=== PATIENT | female | born 1940 | race Caucasian/White ===

== ENCOUNTER → 2016-08-27 | Outpatient (CLI) | payer OTHER ==
[~2016-08-27] MED LIST: AMIO200T42; ASCA500 PO; ATOR10TA88 PO; CHOL100010 PO; CLTP PO; HYDRCRE28 TOP; METO50TA16 PO; MULT-506 PO; MULTCAP7 PO; OMEG10007 PO; SSDCR400; TRMCR130WC TOP; WARF5TAB7 PO; [UNRECOGNIZED DRUG - CODE] PO
--- NOTE | 2016-08-30 14:28 | MAMMOGRAPHY REPORT ---
BILATERAL DIGITAL SCREENING MAMMOGRAM WITH CAD: 08/27/2016 TECHNIQUE: Current study was also evaluated with a Computer Aided Detection (CAD) system. Bilatera l CC and MLO views were obtained. COMPARISON: Comparison is made to exams dated: 08/26/2015 mammogram, 08/22/2014 mammogram, 06/30/2012 mammogram, 06/22/2010 mammogram, 07/02/2013 mammogram, and 06/24/2011 mammogram - [facility]. BREAST COMPOSITION: There are scattered areas of fibroglandular density in both breasts. FINDINGS: There is a stable small round 4 mm mass within the right 12:00 breast. However, there ar e possible increasing calcifications seen within the mass, for which spot magnification views and po ssible breast ultrasound are recommended for further evaluation. Additionally, there are also possi ble increasing calcifications in the right inferior and slightly medial breast middle depth, for whi ch spot magnification views are also recommended. The remainder of both breasts are stable compared to prior exams, without suspicious masses, calcifi cations, or areas of architectural distortion noted. IMPRESSION: ACR BI-RADS CATEGORY 0: INCOMPLETE EVALUATION: NEED ADDITIONAL IMAGING EVALUATION Right breast calcifications, for which additional imaging evaluation is recommended. The patient wi ll be called to schedule an appointment. Approximately 10% of breast cancers are not detected with mammography. A negative mammographic repor t should not delay biopsy if a clinically suggestive mass is present. Courtney Rolle M.D. /:08/27/2016 16:42:39 Lapper: Karen STEEN)(Ric), [facility] letter sent: Addl Imaging 0 BI-RADS Code: ACR BI-RADS Category 0: Incomplete Evaluation: Need Additional Imaging Evaluation
== END | disposition home or self-care (01) ==
LOC: C.MAMM 15:51
PROVIDERS: ATTEND Physician Assistant
DX: Z12.31 Encounter for screening mammogram for malignant neoplasm of breast (principal); R92.1 Mammographic calcification found on diagnostic imaging of breast

== ENCOUNTER → 2016-09-09 | Outpatient (CLI) | payer OTHER ==
[~2016-09-09] MED LIST changes: +ATOR10TA82 PO; -ATOR10TA88 PO
--- NOTE | 2016-09-09 15:07 | MAMMOGRAPHY REPORT ---
UNILATERAL RIGHT DIGITAL DIAGNOSTIC MAMMOGRAM: 09/09/2016 CLINICAL HISTORY: Callback from screening mammogram for right breast calcifications. TECHNIQUE: Spot magnification right cc and ML views were obtained. COMPARISON: Comparison is made to exams dated: 08/27/2016 mammogram, 08/26/2015 mammogram, 08/22/2014 mammogram, 07/02/2013 mammogram, 06/30/2012 mammogram, and 06/24/2011 mammogram - [facility]. BREAST COMPOSITION: There are scattered areas of fibroglandular density in the right breast. FINDINGS: There is a small cluster of calcifications seen within a 4 mm round mass in the right 12:00 breast. The mass does not appear significantly changed compared to prior exams including the 2008 exam. Ho wever, there are punctate calcifications seen within the mass which are not clearly stable compared to prior exams. Additionally, there is a small 2 mm cluster of calcifications seen within the right lower inner quadrant which appears similar to the 12:00 calcifications, which are likely stable com pared to the 2015 exam although were not clearly seen on exams prior to 2016. Although the increase d conspicuity of both clusters of calcifications could be due to technical differences (currently us ing [employer] equipment, previously using [employer] equipment on some of the prior exams), the calcifications are indeterminate. Stereotactic biopsy of the right 12:00 calcifications is recommended, however, the patient refuses biopsy. Therefore, recommend short interval follow-up in 6 months. IMPRESSION: ACR-BI-RADS CATEGORY 3: PROBABLY BENIGN 1. Possible increasing calcifications within a stable 4 mm mass within the right breast at 12:00. G iven that the calcifications are not clearly stable, biopsy is recommended. However, the patient do es not want biopsy and would prefer follow-up. Therefore, recommend follow-up diagnostic mammograms of the right breast in 6 months to confirm stability on spot magnification views. 2. Small 2 mm cluster of calcifications in the right lower inner quadrant which are likely stable t o the 2016 exam and are probably benign. Recommend follow-up diagnostic mammograms in 6 months to c onfirm stability. The patient has been verbally notified of the results. Approximately 10% of breast cancers are not detected with mammography. A negative mammographic repor t should not delay biopsy if a clinically suggestive mass is present. Courtney Rolle M.D. ah/:09/09/2016 11:57:33 Sander Machine: Nikki Camilo [facility] letter sent: Follow Up Recommended 3 BI-RADS Code: ACR-BI-RADS Category 3: Probably Benign
== END | disposition home or self-care (01) ==
LOC: C.MAMM 10:37
PROVIDERS: ATTEND Physician Assistant
DX: R92.1 Mammographic calcification found on diagnostic imaging of breast (principal)

== ENCOUNTER → 2017-04-18 | Outpatient (CLI) | payer OTHER ==
--- NOTE | 2017-04-18 15:03 | MAMMOGRAPHY REPORT ---
UNILATERAL RIGHT DIGITAL DIAGNOSTIC MAMMOGRAM TOMOSYNTHESIS WITH CAD: 04/18/2017 CLINICAL HISTORY: 76-year-old woman presents for follow-up in the right breast. On prior screening m ammogram and diagnostic mammogram dated 08/27/2016 and 09/09/2016, the patient was noted to have 2 no dular asymmetries with associated clustered punctate microcalcifications in the right breast. These nodular asymmetries with calcifications were new comparing to the prior 2013 and 2014 mammogram and t herefore indeterminate. Stereotactic guided biopsy was recommended but the patient declined biopsy a nd preferred to follow these findings. The patient also reported further that she is living in chronic pain elsewhere in her body (back and legs) and also would not have any treatment if malignancy were identified in the breast. TECHNIQUE: Right CC and MLO 2-D and tomosynthesis images, spot magnification right CC and ML views we re obtained. Current study was also evaluated with a Computer Aided Detection (CAD) system. COMPARISON: Comparison is made to exams dated: 09/09/2016 mammogram, 08/27/2016 mammogram, 08/26/2015 ma mmogram, 08/22/2014 mammogram, 07/02/2013 mammogram, and 06/30/2012 mammogram - [facility]. BREAST COMPOSITION: There are scattered areas of fibroglandular density in the right breast. FINDINGS: There is 4.3 x 3.8 mm nodular asymmetry with associated clustered punctate microcalcificat ion in the 12:00 middle one third of the right breast. When comparing to the prior spot magnificatio n views, this is unchanged in size and visual appearance and previously measured 4.7 x 3.8 mm. The s light differences in measurements are likely due to technical differences and positioning. A second smaller similar appearing nodular asymmetry with associated clustered punctate microcalcification is identified in the 6:00 middle one third of the breast, measuring 3 mm. No new suspicious masses, asy mmetries, areas of distortion or other suspicious microcalcifications are identified in the right cody ast. Stereotactic guided biopsy is again recommended of the dominant nodular asymmetry with associat ed calcification in the 12:00 breast, given that long-term stability is not demonstrated mammographic ally. IMPRESSION: ACR BI-RADS CATEGORY 4: SUSPICIOUS 1. Right breast stereotactic guided biopsy is recommended for a 4.3 mm nodular asymmetry with associ ated clustered punctate microcalcification in the 12:00 middle one third of the breast. The second s maller similar appearing nodular asymmetry with history punctate microcalcification in the 6:00 breas t could continue to be followed with imaging in 6 months, pending benign pathology results. These results and recommendations were discussed with the patient at the time of the exam. She again declines biopsy given that she is in chronic pain elsewhere in her body. I discussed at length that even though this nodular asymmetry with calcifications has been relatively stable over 6 months, it is new comparing to the prior 2013 mammograms and therefore could still possibly represent indolent D CIS or atypia. I again urged biopsy, which the patient does not wish, and she would prefer to follow with repeat imaging. I also discussed that if she does not wish to have any treatment if malignancy is found, she should consider discontinuing mammograms. Approximately 10% of breast cancers are not detected with mammography. A negative mammographic report should not delay biopsy if a clinically suggestive mass is present. Catalina Aguayo M.D. ay/:04/18/2017 14:19:12 Laundry Operator: Freida JENSEN(Celsa)(M), [facility] letter sent: Abnormal 4/5 BI-RADS Code: ACR BI-RADS Category 4: Suspicious
== END | disposition home or self-care (01) ==
LOC: C.MAMM 13:42
PROVIDERS: ATTEND Physician Assistant
DX: N64.89 Other specified disorders of breast (principal); R92.0 Mammographic microcalcification found on diagnostic imaging of breast

== ENCOUNTER 2020-10-21 10:28 | Inpatient (IN) ==
--- NOTE | 2020-10-21 14:09 | History & Physical Report ---
Date of Service October 21, 2020 Assessment & Plan (1) Cellulitis of both lower extremities: Pt failed outpatient treatment with IM Rocephin and oral Bactrim. Culture results reviewed - discussed with pharmacy for antibiotic/treatment recommendations - Will start IV Zosyn, continue oral Bactrim - Blood cultures, repeat wound culture - Consult infectious disease for additional antibiotic recommendations - Wound care consult (2) Skin ulcer of multiple sites: See plan for #1 (3) HTN (hypertension): - Continue home med regimen - BP stable at present. (4) Dyslipidemia: - Continue statin therapy (5) Atrial fibrillation: Stable without persistent symptoms - on chronic anticoagulation. Will hold Eliquis in case additional debridement needed. Start subQ Heparin for DVT prophylaxis (6) Hypothyroidism: - Continue outpatient levothyroxine. Pt seen and reviewed with attending physician, Dr. Hurst. Plan of care discussed and as outlined above. Pt was planning to go to [facility] later this week as currently unable to manage independently at home. Will consult PT/OT due to LE weakness and case management to assist with discharge planning. Code status: full code, both of her children would be her decision makers in the event she was unable to make decisions for herself DVT prophylaxis: subQ heparin Elvira Springer PA-C Admission and Anticipated Discharge Date Admission Date: October 21, 2020 History of Present Illness Chief Complaint: Leg pain and ulcers Primary Care Provider: Yi Orosco PA-C This is a 80 y/o female with a PMH of atrial fibrillation on chronic anticoagulation with Eliquis, HTN, lymphedema, dyslipidemia, and mitral valve regurgitation presents as a direct admission from wound care today with a necrotic calf wound and associated cellulitis that failed outpatient management with IM ceftriaxone and oral Bactrim. Pt reports ongoing issues with lower extremity edema for which she has been seen outpatient, diuretics were adjusted, and patient was referred to the lymphedema clinic. Pt reports ulcers started about 3 weeks ago but have gradually worsened. Initially the drainage was clear but has become yellow and more profuse over the past several days. May be bloody at times. Last week, pts daughter arrived from out of town and noted a large wound on pts right calf with associated redness, which she was very concerned about. Pt was seen in PCP office and started on antibiotics and labs and a wound culture were collected. She received Ceftriaxone 1 g IM on 10/16, 10/17, and 10/18. She was started on oral Bactrim DS 1 tab BID on 10/17. Topical silvadene was also started on 10/16. Wound culture from 10/17/20 grew many citrobacter (susceptible to cefepime, Cipro, gentamicin, pip/tazo, and Bactrim), many stenotrophomonas maltophilia (no susceptibility testing but recommends Bactrim), and few staph aureus (susceptible to clindamycin, oxacillin, tetracycline, Bactrim and Vanco but resistant to PCN-G and intermediate to erythromycin). Today she presented for urgent evaluation at wound care clinic and was noted to have multiple wounds, including the one on her right calf that is now necrotic, with an associated cellulitis. She was referred by the wound care physician to be directly admitted for surgical debridement and IV antibiotic therapy. Pt's main complaint is LE weakness, pain/soreness at the ulcer sites, and limited ability to ambulate due to this complaint. She denies fevers, chills, malaise, fatigue, CP, palpitation, SOB, N/V/D. She does note urinary incontinence that she relates to the higher dose of Demadex. Allergies Allergy/AdvReac Type Severity Reaction Status Date / Time No Known Allergies Allergy Verified 10/21/20 09:05 Home Medications Medication Instructions Recorded Confirmed Type apixaban 5 mg tablet 5 mg PO BID 10/21/20 10/21/20 History atorvastatin 10 mg tablet 10 mg PO PM 10/21/20 10/21/20 History calcium carbonate 600 mg(1,500 1 tab PO BID 10/21/20 10/21/20 History mg)-vitamin D3 800 unit chewable tablet cholecalciferol (vitamin D3) 25 25 mcg PO DAILY 10/21/20 10/21/20 History mcg (1,000 unit) capsule diclofenac sodium 1 % topical gel 2 g TOPICAL QID 10/21/20 10/21/20 History levothyroxine 25 mcg capsule 12.5 mcg PO DAILY cap 10/21/20 10/21/20 History losartan 25 mg tablet 25 mg PO QPM tab 10/21/20 10/21/20 History losartan 25 mg tablet 50 mg PO QAM tab 10/21/20 10/21/20 History metoprolol tartrate 100 mg PO QAM 10/21/20 10/21/20 History metoprolol tartrate 50 mg tablet 50 mg PO PM tab 10/21/20 10/21/20 History potassium chloride 20 mEq 20 meq PO DAILY 10/21/20 10/21/20 History tablet,extended release(part/cryst) silver sulfadiazine 1 % topical 1 applic TOPICAL DAILY 10/21/20 10/21/20 History cream sulfamethoxazole 800 1 tab PO BID 10/21/20 10/21/20 History mg-trimethoprim 160 mg tablet torsemide 20 mg tablet 20 mg PO BID tab 10/21/20 10/21/20 History vitamins A,C,U-[id number]-[id number] 7,160 1 tab PO ONCE tab 10/21/20 10/21/20 History unit-113 mg-100 unit tablet Past Med/Surg History Medical History (Updated 10/21/20 @ 17:00 by Zakiya Springer PA-C) Afib Benign neoplasm of colon Diverticula, colon Dyslipidemia History of cardioversion HTN (hypertension) Hypothyroidism Menopause Osteoarthritis Surgical History History of ankle surgery History of dilation and curettage S/P tonsillectomy and adenoidectomy Family History (Updated 10/21/20 @ 14:39 by Zakiya Springer PA-C) Sister Endometrial cancer Hypertension Mother Stroke Father Hypertension Brain cancer Social History Smoking Status: Former smoker Smoking End Date: "Many years ago"; Hx Alcohol Use: No Hx Substance Use: No Preferred Language: Latvian Communication Ability: Effective Visual Impairment: Limited Hearing Ability: Hard of Hearing Equipment Superintendent Required: No Beliefs That Will Affect Care: None marital status: Current Living Situation: Alone Current Living Situation Comment: FAMILY AND PT WORKING ON GETTING PT PLACEMENT INTO INPT REHAB FACILITY current occupational status: retired How many Children do You have: 2 How many Children do You have Comment: NOBODY IS LOCAL, HOWEVER THEY ARE INVOLVED WITH PT Other Information That Helps Us Care for You: No Feels Safe at Home: Yes Safety Concerns: Feels Safe At This Time Safety Concerns Comment: STATED WORKING ON GETTING PT/OT TO MAKE STAYING AT HOME ALONE MORE SAFE. during the past year weight has: decreased > 10 lbs Assistive Devices: None Review of Systems Review of Systems: All systems reviewed & are unremarkable except as noted in HPI & below Constitutional: no fever, no chills, no sweats, no fatigue and no anorexia Eyes: no diplopia and no worsening vision Respiratory: no cough, no chest congestion, no dyspnea and no wheezing Cardiovascular: + edema; no chest pain, no palpitations and no syncope Gastrointestinal: no abdominal pain, no nausea, no vomiting, no change in bowel habits, no diarrhea/loose stools and no blood in stools Genitourinary: + urinary frequency and + urinary incontinence; no dysuria and no hematuria Musculoskeletal: + back pain +chronic arthritis pain - uses Diclofenac gel with some relief Integumentary: as per Subjective / HPI Neurologic: + localized weakness (bilateral LE); no generalized weakness, no seizure-like activity, no dizziness and no headache(s) Psychiatric: no depression and no anxiety Physical Exam Constitutional: well developed and well nourished; no acute distress Eyes: + anicteric sclerae; no conjunctival abnormality Neck: trachea midline Respiratory: no respiratory distress and no labored breathing Auscultation: lungs clear to auscultation bilaterally; no rales, no rhonchi and no wheezes Cardiovascular: Rate/Rhythm: + irregularly irregular Vessels: radial pulses present; no carotid bruit Extremities: + edema (bilateral LE 1+ pitting to lower thighs - however, legs currently wrapped) Gastrointestinal (Abdomen): Inspection/Auscultation: normal bowel sounds; abdomen not distended Percussion/Palpation: abdomen soft; abdomen nontender Musculoskeletal: Head/Neck/Chest: normocephalic, head atraumatic and neck supple Skin: Bilateral LEs are wrapped with dressings C/D/I - not removed since pt was evaluated by wound care this AM (please see their note) and debridement attempted Neurologic: moves all extremities; no focal motor deficits Motor/Sensory: normal movement Psychiatric: A+Ox3, euthymic affect Results & Data Results & Data ([facility]) Vital Signs (Past 12 Hours) Vital Signs Temp Resp BP Pulse Ox 10/21/20 13:27 36.8 C 17 110/70 98 Code Status & VTE Plan VTE Prophylaxis Plan VTE Prophylaxis will be ordered: Yes Supervising Physician Co-Signing Physician Notes Attending addendum: The patient was seen and examined in medical floor in presence of the daughter She is 80-year-old obese female significant past medical history of A. fib on Eliquis, mitral regurgitation, hypertension, hyperlipidemia and chronic bilateral lymphedema has been under care of wound clinic was admitted directly from the wound clinic with worsening bilateral lower extremity wounds She complains to have more pain and redness involving the legs but denies any fever and/or chills or any sweating On examination Sitting at the edge of the bed without any apparent distress Hemodynamically stable Chest-clear to auscultate bilaterally Heart-S1-S2 with 2/6 ESM over precordium Abdomen-distended, soft bowel sound present ACIDITY TESTER-alert, awake and oriented x3. No focal neuro deficit but generally weak Extremities-has bilateral lymphedema Both the legs are bandaged, erythematous on top of the bandage and feels warm Her admission labs including CBC and PRP noted. She has mildly elevated lactate of 2.7 and mildly elevated C-reactive protein of 5.95. Recent wound culture grew Citrobacter and stenotrophomonas maltophilia sensitive to Bactrim. Assessment and plan: Has bilateral leg cellulitis with history of lymphedema-we will start intravenous Zosyn and oral Bactrim and get ID recommendation Wound care consult and possible debridement if indicated Atrial fibrillation on Eliquis-no acute symptoms. We will get echocardiogram to evaluate cardiac function Hypertension-we will continue current medications Bilateral lymphedema of the legs-we will continue torsemide and monitor PRP Reviewed assessment and plan as outlined above by WINIFRED Santizo Dr (1) Skin ulcer of multiple sites Non-pressure ulcer stage: unspecified non-pressure ulcer stage Qualified Code(s): L98.499 - Non-pressure chronic ulcer of skin of other sites with unspecified severity (2) Atrial fibrillation Atrial fibrillation type: longstanding persistent Qualified Code(s): I48.11 - Longstanding persistent atrial fibrillation (3) Hypothyroidism Hypothyroidism type: acquired Qualified Code(s): E03.9 - Hypothyroidism, unspecified (4) HTN (hypertension) Hypertension type: essential hypertension Qualified Code(s): I10 - Essential (primary) hypertension
[2020-10-21] MEDS ORDERED: PIPERACILL/TAZOBAC CONSULT ACTIVE PRN (14:31)
[2020-10-21] MEDS ORDERED: PIPERACILLIN/TAZOBACTAM 4.5 GM in DEXTROSE 5% 100 ML IV SCH (14:45)
[2020-10-21] MEDS ORDERED: PATIENT'S HEIGHT AND/OR WEIGHT NEEDED SCH (14:45)
[2020-10-21 14:54] LABS: Basophils # (auto) 0.03 K/uL (0-0.2); Basophils % (auto) 0.3 %; Eosinophils # (auto) 0.19 K/uL (0-0.5); Eosinophils % (auto) 2.2 %; Hemoglobin 14.2 g/dL (12.0-16.0); Immature Granulocytes # (auto) 0.03 K/uL (0.00-0.02); Immature Granulocytes % (auto) 0.3 %; Lymphocytes # (auto) 1.01 K/uL (1.2-3.4); Lymphocytes % (auto) 11.6 %; Mean Corpuscular Hemoglobin 29.5 pg (25-34); Mean Corpuscular Volume 89.4 fL (80-100); Monocytes # (auto) 0.48 K/uL (0.11-0.59); Monocytes % (auto) 5.5 %; Neutrophils % (auto) 80.1 %; Platelet Count 294 K/uL (130-400); RDW Coefficient of Variation 15.8 % (11.5-14.5); RDW Standard Deviation 51.4 fL (36.4-46.3); Red Blood Count 4.81 M/uL (4.2-5.4); White Blood Count 8.74 K/uL (4.8-10.8)
[2020-10-21 15:13] LABS: BUN Creatinine Ratio 23.4 (10-20); Blood Urea Nitrogen 27 mg/dl (7-18); C Reactive Protein 5.95 mg/dl (0-0.29); Calcium 9.4 mg/dl (8.5-10.1); Carbon Dioxide 27 mmol/L (21-32); Chloride 102 mmol/L (98-107); Est GFR (African American) 51.3 ml/min; Est GFR (Non-African American) 44.3 ml/min; Glucose 110 mg/dl (70-99); Potassium 4.3 mmol/L (3.5-5.1); Sodium 136 mmol/L (136-145)
[2020-10-21] MEDS ORDERED: PIPERACILLIN/TAZOBACTAM 4.5 GM in DEXTROSE 5% 100 ML IV ONE (17:00)
[2020-10-21] MEDS: ATORVASTATIN 10 MG TAB PO SCH (21:31)
[2020-10-21] MEDS: SULFAMETHOXAZOLE/TRIMETHOPRIM DS 800/160MG TAB PO SCH (21:31)
[2020-10-21] MEDS: LOSARTAN POTASSIUM 25 MG TAB PO SCH (21:31)
[2020-10-21] MEDS: METOPROLOL TARTRATE 50 MG TAB PO SCH (21:31)
[2020-10-21] MEDS: HEPARIN SOD 5,000 UNIT/0.5 ML VIAL SQ SCH (21:31)
[2020-10-21] MEDS: PIPERACILLIN/TAZOBACTAM 3.375 GM in DEXTROSE 5% 100 ML IV SCH (23:06)
[2020-10-22] MEDS: PIPERACILLIN/TAZOBACTAM 3.375 GM in DEXTROSE 5% 100 ML IV SCH ×3 (06:14→21:53)
[2020-10-22] MEDS: LEVOTHYROXINE SODIUM 25 MCG TABLET PO SCH (06:15)
[2020-10-22] MEDS: HEPARIN SOD 5,000 UNIT/0.5 ML VIAL SQ SCH ×3 (06:15→21:48)
[2020-10-22 07:56] LABS: Basophils # (auto) 0.04 K/uL (0-0.2); Basophils % (auto) 0.5 %; Eosinophils # (auto) 0.27 K/uL (0-0.5); Eosinophils % (auto) 3.2 %; Hematocrit (blood only) 40.5 % (37-47); Hemoglobin 13.4 g/dL (12.0-16.0); Immature Granulocytes # (auto) 0.02 K/uL (0.00-0.02); Immature Granulocytes % (auto) 0.2 %; Lymphocytes # (auto) 0.66 K/uL (1.2-3.4); Lymphocytes % (auto) 7.8 %; Mean Corpuscular Hemoglobin 29.8 pg (25-34); Mean Corpuscular Hgb Conc 33.1 g/dL (32-36); Mean Corpuscular Volume 90.2 fL (80-100); Mean Platelet Volume 9.5 fL (7.4-10.4); Monocytes # (auto) 1.36 K/uL (0.11-0.59); Neutrophils # (auto) 6.14 K/uL (1.4-6.5); Neutrophils % (auto) 72.3 %; Platelet Count 291 K/uL (130-400); RDW Standard Deviation 52.4 fL (36.4-46.3); Red Blood Count 4.49 M/uL (4.2-5.4); White Blood Count 8.49 K/uL (4.8-10.8)
[2020-10-22 08:23] LABS: BUN Creatinine Ratio 19.5 (10-20); Calcium 9.6 mg/dl (8.5-10.1); Creatinine Clr Calc Pharmacy 37.9 ml/min; Est GFR (African American) 44.8 ml/min; Est GFR (Non-African American) 38.6 ml/min; Potassium 4.5 mmol/L (3.5-5.1)
[2020-10-22] MEDS: CHOLECALCIFEROL 1,000 UNITS 25 MCG TAB PO SCH (08:46)
[2020-10-22] MEDS: SULFAMETHOXAZOLE/TRIMETHOPRIM DS 800/160MG TAB PO SCH ×2 (08:46→21:48)
[2020-10-22] MEDS: POTASSIUM CHLORIDE CRTAB 20 MEQ TABCR PO SCH (08:46)
[2020-10-22] MEDS: LOSARTAN POTASSIUM 50 MG TAB PO SCH (08:47)
[2020-10-22] MEDS: METOPROLOL TARTRATE 100 MG TAB PO SCH (08:47)
--- NOTE | 2020-10-22 14:56 | Surgery Consultation ---
Date of Consultation October 22, 2020 Assessment & Plan (1) Venous stasis ulcers of both lower extremities: This is a 80y F with a PMH of afib on eliquis, hypothyroidism, back pain, HTN, and venous stasis ulcers who presents to the [facility] on 10/21/20 as a referral from the wound care clinic for necrotic right calf wound. Wound care requested our consultation for consideration of surgical debridement of necrotic R calf wound that has not shown improvement with recent course of abx and local care. Patient is currently on IV zosyn and PO bactrim based recent on wound cultures. Today WBC 8 and patient is afebrile. Wound was measured today at [id number], central eschar/necrotic tissue noted, with moderate amount of drainage. It appears her last dose of Eliquis was yesterday, but pt cannot recall exact timing. Would hold eliquis for now. Will discuss with Dr. Ireland timing of surgical debridement. Supervising Physician Co-Signing Physician Notes Patient seen and examined, agree with above. 80-year-old female with multiple medical problems on Eliquis with several lower extremity wounds secondary to venous insufficiency. She currently has a large superficial wound of her right posterior lower leg. Is approximately 9 x 11 cm and has a black eschar over it. There does not appear to be any underlying fluid collection. It does appear to be quite superficial. I think it would benefit from debridement. We offered her bedside debridement versus in the OR. Due to pain at prior debridement, she elects for debridement in the operating room. Plan for right lower extremity wound debridement tomorrow Hold Eliquis The risk the procedure were discussed to include but not limited to bleeding, infection, damage to surrounding structures, need for future more extensive surgery, infection, and failure for wound to heal, and the risk of anesthesia The diagnosis, details of procedure recovery, and plan of care discussed the patient, all questions were answered, the patient expressed understanding agrees the plan of care as stated History of Present Illness Attending Physician: Maikel Aguayo MD History of Present Illness This is a 80y F with a PMH of afib on eliquis, hypothyroidism, back pain, HTN, and venous stasis ulcers who presents to the [facility] on 10/21/20 as a referral from the wound care clinic for necrotic right calf wound. Patient reports she noticed leaking of her R calf over the past few weeks, but that she actually noticed a wound there that opened up a week ago last Tuesday. She went to her PCP for evaluation around 10/16 where she was prescribed a course of IM rocephin and po bactrim. Patient was seen in the wound care clinic yesterday and was evaluated for her lower extremity ulcers. Attempts were made at debriding her R calf wound yesterday, however she was only able to tolerate minimal debridement. It was recommended she come to the hospital for IV abx & consideration of surgical debridement given ongoing cellulitis & necrotic appearing wound. Patient denies any fevers/chills. She notes some tenderness of the area with certain movements. She states she it's been difficult to try to off load the area at home given the location of the wound. Allergies Allergy/AdvReac Type Severity Reaction Status Date / Time No Known Allergies Allergy Verified 10/21/20 09:05 Home Medications Medication Instructions Recorded Confirmed Type apixaban 5 mg tablet 5 mg PO BID 10/21/20 10/21/20 History atorvastatin 10 mg tablet 10 mg PO PM 10/21/20 10/21/20 History calcium carbonate 600 mg(1,500 1 tab PO BID 10/21/20 10/21/20 History mg)-vitamin D3 800 unit chewable tablet cholecalciferol (vitamin D3) 25 25 mcg PO DAILY 10/21/20 10/21/20 History mcg (1,000 unit) capsule diclofenac sodium 1 % topical gel 2 g TOPICAL QID 10/21/20 10/21/20 History levothyroxine 25 mcg capsule 12.5 mcg PO DAILY cap 10/21/20 10/21/20 History losartan 25 mg tablet 25 mg PO QPM tab 10/21/20 10/21/20 History losartan 25 mg tablet 50 mg PO QAM tab 10/21/20 10/21/20 History metoprolol tartrate 100 mg PO QAM 10/21/20 10/21/20 History metoprolol tartrate 50 mg tablet 50 mg PO PM tab 10/21/20 10/21/20 History potassium chloride 20 mEq 20 meq PO DAILY 10/21/20 10/21/20 History tablet,extended release(part/cryst) silver sulfadiazine 1 % topical 1 applic TOPICAL DAILY 10/21/20 10/21/20 History cream sulfamethoxazole 800 1 tab PO BID 10/21/20 10/21/20 History mg-trimethoprim 160 mg tablet torsemide 20 mg tablet 20 mg PO BID tab 10/21/20 10/21/20 History vitamins A,C,H-vndk-chiiqw 7,160 1 tab PO ONCE tab 10/21/20 10/21/20 History unit-113 mg-100 unit tablet Patient History Medical History Afib Benign neoplasm of colon Diverticula, colon Dyslipidemia History of cardioversion HTN (hypertension) Hypothyroidism Menopause Osteoarthritis Surgical History History of ankle surgery History of dilation and curettage S/P tonsillectomy and adenoidectomy Family History Sister Endometrial cancer Hypertension Mother Stroke Father Hypertension Brain cancer Social History Smoking Status: Former smoker Smoking End Date: "Many years ago"; Hx Alcohol Use: No Hx Substance Use: No Preferred Language: Uzbek Communication Ability: Effective Visual Impairment: Limited Hearing Ability: Hard of Hearing Residential Mental Health Worker Required: No Beliefs That Will Affect Care: None marital status: Current Living Situation: Alone Current Living Situation Comment: FAMILY AND PT WORKING ON GETTING PT PLACEMENT INTO INPT REHAB FACILITY current occupational status: retired How many Children do You have: 2 How many Children do You have Comment: NOBODY IS LOCAL, HOWEVER THEY ARE INVOLVED WITH PT Other Information That Helps Us Care for You: No Feels Safe at Home: Yes Safety Concerns: Feels Safe At This Time Safety Concerns Comment: STATED WORKING ON GETTING PT/OT TO MAKE STAYING AT HOME ALONE MORE SAFE. during the past year weight has: decreased > 10 lbs Assistive Devices: Walker Review of Systems Constitutional: no fever and no chills Respiratory: no dyspnea Cardiovascular: no chest pain Gastrointestinal: no nausea and no vomiting Integumentary: + wounds on the L rose, R heel and R calf. Physical Exam Physical Exam: awake/alert Constitutional: no acute distress Respiratory: normal respiratory effort Skin: + superficial wounds 2x noted on left rose. + wound on R heel + right calf wound per wound care measuring 11x11 cm, moderate amount of serosang drainage, central area of necrotic tissue noted. + TTP Results & Data ([facility]) Vital Signs (Past 12 Hours) Vital Signs Temp Pulse Resp BP Pulse Ox 10/22/20 07:49 37.5 C 109 H 14 130/68 90 PG Care Time/CCT Total # of Minutes Spent Total Time Spent with Patient: Total time spent is greater than 50% in coordination of care (as documented) at patient's floor/unit and/or counseling patient: Coding Level of Care Code 25272 Initial Inpt Care Lvl 1 Diagnoses Venous stasis ulcers of both lower extremities I83.019; I83.029; L97.919; L97.929
[2020-10-22] MEDS: COLLAGENASE OINT 30 GM TUBE EXT SCH (15:00)
--- NOTE | 2020-10-22 19:13 | Hospitalist Progress Note ---
Date of Service October 22, 2020 Assessment & Plan (1) Cellulitis of both lower extremities: (2) Skin ulcer of multiple sites: Pt was sent from wound care clinic to the ER for wound necrotic Pt failed outpatient treatment with IM Rocephin and oral Bactrim. Continue IV Zosyn and oral Bactrim for now Wound cx grew gram negative bacilli [facility] ID consulted - Pending Wound care on board Continue daily wound care Will consult surgery for possible wound debridement (3) HTN (hypertension): Continue home med regimen BP stable at present. (4) Dyslipidemia: Continue statin therapy (5) Atrial fibrillation: Stable without persistent symptoms - on chronic anticoagulation. Will hold Eliquis in case additional debridement needed. (6) Hypothyroidism: Continue outpatient levothyroxine. Code status full code DVT prophylaxis on subQ heparin, but will hold in am for possible rehab Admission and Anticipated Discharge Date Admission Date: October 21, 2020 Subjective Pt was seen and examined for follow of wound in the right calf area Lying in bed with no distress Pt said that he has tenderness in his right calf and heal area with pressure Denies any chest pain, palpitation, dizziness and SOB Review of Systems Review of Systems: All systems reviewed & are unremarkable except as noted in Subjective Physical Exam Physical Exam: General- No acute distress Head- atraumatic Eyes- PERRL, EOMI, ENT- oropharynx clear Neck- supple, no JVD Lungs- clear to auscultation Heart- irregular rhythm; no murmur Abdomen- normal bowel sounds, soft, nontender Extremities- +edema, dressing placed in legs, see pictures from wound consult Neuro- alert, oriented x 3; PERRL, EOMI; no facial palsy; no dysarthria Skin- warm & dry Results & Data Results & Data ([facility]) Vital Signs (Past 12 Hours) Vital Signs Temp Pulse Pulse Resp BP Pulse Ox 10/22/20 15:50 36.7 C 98 H 18 109/66 99 10/22/20 07:49 37.5 C 109 H 14 130/68 90 (1) Skin ulcer of multiple sites Non-pressure ulcer stage: unspecified non-pressure ulcer stage Qualified Code(s): L98.499 - Non-pressure chronic ulcer of skin of other sites with unspecified severity (2) Atrial fibrillation Atrial fibrillation type: longstanding persistent Qualified Code(s): I48.11 - Longstanding persistent atrial fibrillation (3) Hypothyroidism Hypothyroidism type: acquired Qualified Code(s): E03.9 - Hypothyroidism, unspecified (4) HTN (hypertension) Hypertension type: essential hypertension Qualified Code(s): I10 - Essential (primary) hypertension
[2020-10-22] MEDS: LOSARTAN POTASSIUM 25 MG TAB PO SCH (21:48)
[2020-10-22] MEDS: ATORVASTATIN 10 MG TAB PO SCH (21:48)
[2020-10-22] MEDS: METOPROLOL TARTRATE 50 MG TAB PO SCH (21:48)
[2020-10-23] MEDS: LEVOTHYROXINE SODIUM 25 MCG TABLET PO SCH (05:47)
[2020-10-23] MEDS: PIPERACILLIN/TAZOBACTAM 3.375 GM in DEXTROSE 5% 100 ML IV SCH ×3 (05:52→22:48)
[2020-10-23] MEDS: CHOLECALCIFEROL 1,000 UNITS 25 MCG TAB PO SCH (08:12)
[2020-10-23] MEDS: LOSARTAN POTASSIUM 50 MG TAB PO SCH (08:13)
[2020-10-23] MEDS: COLLAGENASE OINT 30 GM TUBE EXT SCH (08:13)
[2020-10-23] MEDS: POTASSIUM CHLORIDE CRTAB 20 MEQ TABCR PO SCH (08:13)
[2020-10-23] MEDS: SULFAMETHOXAZOLE/TRIMETHOPRIM DS 800/160MG TAB PO SCH ×2 (08:13→20:09)
[2020-10-23] MEDS: METOPROLOL TARTRATE 100 MG TAB PO SCH (08:14)
[2020-10-23 10:04] LABS: Calcium 8.7 mg/dl (8.5-10.1); Creatinine Clr Calc Pharmacy 50.7 ml/min; Est GFR (African American) 63.6 ml/min; Est GFR (Non-African American) 54.9 ml/min; Potassium 4.4 mmol/L (3.5-5.1)
--- NOTE | 2020-10-23 11:47 | Anesthesiology Consultation ---
Date of Service October 23, 2020 Assessment & Plan (1) Encounter for pre-operative examination: History Surgery Operation Date: 10/23/20 11:30 Proposed Procedures p Right Lower Extremity Debridement of Calf Wound - Pepito Ireland DO, FACS Height/Weight Height: 5 ft 4 in Weight: 90.45 kg Allergies Allergy/AdvReac Type Severity Reaction Status Date / Time No Known Allergies Allergy Verified 10/21/20 09:05 Medications Home Medications Medication Instructions Recorded Confirmed Last Taken apixaban 5 mg tablet 5 mg PO BID 10/21/20 10/21/20 10/21/20 atorvastatin 10 mg tablet 10 mg PO PM 10/21/20 10/21/20 10/20/20 calcium carbonate 600 mg(1,500 1 tab PO BID 10/21/20 10/21/20 10/21/20 mg)-vitamin D3 800 unit chewable tablet cholecalciferol (vitamin D3) 25 25 mcg PO DAILY 10/21/20 10/21/20 10/21/20 mcg (1,000 unit) capsule diclofenac sodium 1 % topical gel 2 g TOPICAL QID 10/21/20 10/21/20 10/21/20 levothyroxine 25 mcg capsule 12.5 mcg PO DAILY cap 10/21/20 10/21/20 10/21/20 losartan 25 mg tablet 25 mg PO QPM tab 10/21/20 10/21/20 10/20/20 losartan 25 mg tablet 50 mg PO QAM tab 10/21/20 10/21/20 10/21/20 metoprolol tartrate 100 mg PO QAM 10/21/20 10/21/20 10/21/20 metoprolol tartrate 50 mg tablet 50 mg PO PM tab 10/21/20 10/21/20 10/20/20 potassium chloride 20 mEq 20 meq PO DAILY 10/21/20 10/21/20 10/21/20 tablet,extended release(part/cryst) silver sulfadiazine 1 % topical 1 applic TOPICAL DAILY 10/21/20 10/21/20 Unknown cream sulfamethoxazole 800 1 tab PO BID 10/21/20 10/21/20 10/21/20 mg-trimethoprim 160 mg tablet torsemide 20 mg tablet 20 mg PO BID tab 10/21/20 10/21/20 10/21/20 vitamins A,C,O-iojf-fbcefo 7,160 1 tab PO ONCE tab 10/21/20 10/21/20 Unknown unit-113 mg-100 unit tablet Active Medications Generic Name Dose Route Start Last Admin Trade Name Machelle PRN Reason Stop Dose Admin Atorvastatin Calcium 10 mg 10/21/20 21:00 10/22/20 21:48 Atorvastatin 10 Mg Tab PO 11/20/20 20:59 10 mg PM ALPA Administration Collagenase 1 appln 10/22/20 12:30 10/23/20 08:13 Collagenase Oint 30 Gm Tube EXT 11/21/20 12:29 Not Given DAILY ALPA Piperacillin Sod/Tazobactam 115 mls @ 28.75 mls/hr 10/21/20 22:00 10/23/20 09:51 Sod 3.375 gm/ Dextrose IV 10/28/20 21:59 Infused Q8H ALPA Infusion Protocol Levothyroxine Sodium 12.5 mcg 10/22/20 06:30 10/23/20 05:47 Levothyroxine Sodium 25 Mcg Tablet PO 11/21/20 06:29 Not Given DAILYBB ALPA Losartan Potassium 50 mg 10/22/20 09:00 10/23/20 08:13 Losartan Potassium 50 Mg Tab PO 11/21/20 08:59 Not Given QAM ALPA Losartan Potassium 25 mg 10/21/20 21:00 10/22/20 21:48 Losartan Potassium 25 Mg Tab PO 11/20/20 20:59 25 mg QPM ALPA Administration Metoprolol Tartrate 50 mg 10/21/20 21:00 10/22/20 21:48 Metoprolol Tartrate 50 Mg Tab PO 11/20/20 20:59 50 mg PM ALPA Administration Metoprolol Tartrate 100 mg 10/22/20 09:00 10/23/20 08:14 Metoprolol Tartrate 100 Mg Tab PO 11/21/20 08:59 100 mg QAM ALPA Administration Potassium Chloride 20 meq 10/22/20 09:00 10/23/20 08:13 Potassium Chloride Crtab 20 Meq Tabcr PO 11/21/20 08:59 Not Given DAILY ALPA Trimethoprim/Sulfamethoxazole 2 tab 10/21/20 21:00 10/23/20 08:13 Sulfamethoxazole/Trimethoprim Ds 800/160mg Tab PO 10/28/20 20:59 Not Given Q12 ALPA Vitamin D 1,000 units 10/22/20 09:00 10/23/20 08:12 Cholecalciferol 1,000 Units 25 Mcg Tab PO 11/21/20 08:59 Not Given DAILY ALPA NPO Date Last Intake of Fluids: 10/22/20 Time Last Intake of Fluids: 23:59 Date Last Intake of Solids: 10/22/20 Time Last Intake of Solids: 23:59 Past Medical History Medical History Afib Benign neoplasm of colon Diverticula, colon Dyslipidemia History of cardioversion HTN (hypertension) Hypothyroidism Menopause Osteoarthritis Past Family History Family History Sister Endometrial cancer Hypertension Mother Stroke Father Hypertension Brain cancer Past Surgical History Surgical History History of ankle surgery History of dilation and curettage S/P tonsillectomy and adenoidectomy Social History Smoking Status: Former smoker Smoking End Date: "Many years ago" Hx Alcohol Use: No Hx Substance Use: No Physical Exam Vital Signs Last Vital Signs Temp 36.8 C 10/23/20 07:25 Pulse 100 H 10/23/20 07:25 Resp 18 10/23/20 07:25 BP 140/67 10/23/20 07:25 Pulse Ox 93 10/23/20 07:25 Testing Laboratory Results 10/22/20 07:41 10/23/20 09:31 10/21/20 14:42 Aerobic Blood Culture - Preliminary Blood No growth in Aerobic bottle after 24 hours. Anaerobic Blood Culture - Preliminary No growth in Anaerobic bottle after 24 hours. 10/21/20 14:03 Aerobic Blood Culture - Preliminary Blood No growth in Aerobic bottle after 24 hours. Anaerobic Blood Culture - Preliminary No growth in Anaerobic bottle after 24 hours. 10/22/20 01:25 Gram Stain - Final Leg,Left 10/22/20 01:25 Gram Stain - Final Leg,Right Echocardiogram Date: 10/21/20 EF: 55-60% Severe TR, atrial fibrillation
[2020-10-23] MEDS ORDERED: ATROPINE SULFATE 0.1 MG/ML 10ML SYR IV PRN (11:51)
[2020-10-23] MEDS ORDERED: ePHEDrine sulfate 50 MG/ML AMP IV PRN (11:51)
[2020-10-23] MEDS ORDERED: fentaNYL citrate 100 MCG/2 ML VIAL IV PRN (11:51)
[2020-10-23] MEDS ORDERED: ONDANSETRON INJ 2 MG/ML 2 ML VIAL IV PRN (11:51)
[2020-10-23] MEDS ORDERED: HYDROmorphone INJ 1 MG/ML SYRINGE IV PRN (11:51)
--- NOTE | 2020-10-23 11:54 | Surgery Progress Note ---
Date of Service October 23, 2020 Assessment & Plan (1) Pressure ulcer of right calf, stage 2: 80-year-old female with wound of right posterior calf Plan for debridement of right lower extremity wound The risk the procedure were again reviewed to include but not limited to bleeding, infection, prolonged wound healing, damage surrounding structures, need for future more extensive surgery and the risk of anesthesia Eliquis has been held Wound care will take over care of this wound postoperatively. She will likely be able to start her Eliquis tomorrow. Admission and Anticipated Discharge Date Admission Date: October 21, 2020 Subjective 80-year-old female admitted with bilateral lower extremity cellulitis, surgery consulted for right posterior calf wound. Eliquis has been held. She is on IV antibiotics and her symptoms are improving. Physical Exam Physical Exam: awake/alert Constitutional: WD/WN, vitals as above no acute distress Respiratory: normal respiratory effort Skin: + superficial wounds 2x noted on left rose. + wound on R heel + right calf wound per wound care measuring 11x11 cm, moderate amount of serosang drainage, central area of necrotic tissue noted. + TTP Results & Data ([facility]) Vital Signs (Past 12 Hours) Vital Signs Temp Pulse Resp BP Pulse Ox 10/23/20 07:25 36.8 C 100 H 18 140/67 93 PG Care Time/CCT Total # of Minutes Spent Total Time Spent with Patient: Total time spent is greater than 50% in coordination of care (as documented) at patient's floor/unit and/or counseling patient: Coding Level of Care Code 36876 Inpt Consult Level 2 Diagnoses Pressure ulcer of right calf, stage 2 L89.892
[2020-10-23] MEDS ORDERED: fentaNYL citrate 100 MCG/2 ML VIAL ONE (12:38)
[2020-10-23] MEDS ORDERED: ONDANSETRON INJ 2 MG/ML 2 ML VIAL ONE (13:36)
[2020-10-23] MEDS ORDERED: LIDOCAINE 2% 2 ML VIAL/AMP(20MG/ML) INFIL ONE (13:36)
[2020-10-23] MEDS ORDERED: PROPOFOL IV EMULSION 10 MG/ML 20 ML VIAL IV ONE (13:36)
[2020-10-23] MEDS ORDERED: PHENYLEPHRINE 100MCG/ML 5ML SYR ONE (13:36)
[2020-10-23] MEDS ORDERED: LIDOCAINE/EPINEPHRINE 1% 20 ML VIAL ONE (13:48)
[2020-10-23] MEDS ORDERED: HEPARIN SOD 5,000 UNIT/0.5 ML VIAL SQ SCH (14:00)
--- NOTE | 2020-10-23 14:02 | Operative Report ---
PG Post Operative Report Pre & Post Diagnosis Operation Date: 10/23/20 11:30 Pre-Op Diagnosis: NECROTIC WOUND, CELLULITIS Post-Op Diagnosis: NECROTIC WOUND, CELLULITIS I identified the patient and participated in the time-out.: Yes Procedure Operation Date: 10/23/20 11:30 Actual Procedures p Right Lower Extremity Debridement of Calf Wound, sharp debridement, greater than 50 cm2 (Right) - Pepito Ireland DO, ANGELA Surgeon Pepito Ireland DO, ANGELA Program Review Director Kalpana Greene Estimated Blood Loss 10 Findings Consistent with Post-Op Diagnosis Necrotic skin and soft tissue debrided to healthy bleeding fat. No exposed muscle at this time. Total wound size after debridement was 10 x 12 cm and 4 mm deep. Gauze, an ABD, Kerlix, and an Johnson were placed. Specimens None Anesthesia Type General Complications none Disposition Accompanied Patient To Recovery: No Disposition: Recovery Room Indications 80-year-old female with bilateral lower extremity cellulitis and lymphedema as well as pressure wound to posterior right calf requiring debridement. Plan for debridement of right leg wound. The risks of the procedure were discussed, all questions were answered, and the patient agreed to proceed with surgery as planned. Description of Procedure The patient was properly identified, consented, and taken to the operating room where she was placed in the supine position. General anesthesia with a laryngeal mask was induced. The patient was then rolled to the lateral decubitus position with the left side down. The patient was on antibiotics on the floor. The patient's right lower leg was prepped and draped in the standard sterile fashion. Surgical timeout was performed and all parties were in agreement that this was the correct patient and procedure to be performed and we continued as planned. We began by debriding the eschar off of the wound to get a better look. Along the periphery of the wound there was necrotic skin that we debrided. Subcutaneous tissue and fat was debrided down to healthy bleeding tissue. We were a few millimeters deep into the fat and were not involving any muscle or fascia. The wound was irrigated and hemostasis was confirmed. Local anesthetic was injected along the periphery of the incision. 1% lidocaine with epinephrine was placed on some fluffed gauze and placed over the wound. ABDs, Kerlix roll, and an Johnson wrap were placed. The patient tolerated the procedure without incident. The total area of the wound after debridement was 12 cm x 10 cm in size. It was approximately 4 mm deep. This represents an excisional debridement of greater than 50 cm. The patient was extubated in the operating room and taken to the PACU where she recovered without apparent incident. All sponge, instrument and needle counts were correct at the conclusion of the procedure. The patient tolerated the procedure well. The physician's bilingual executive assistant was present and scrubbed for the entire to the procedure. She was critical in positioning the patient, prepping and draping, retraction and exposure, debridement of the wound, placement of the dressings. I attest to the content of the Intraoperative Record and any orders documented therein. Any exceptions are noted below.
--- NOTE | 2020-10-23 14:04 | Surgery Progress Note ---
Date of Service October 23, 2020 Assessment & Plan (1) Pressure ulcer of right calf, stage 2: Excisional debridement of the wound was performed in the operating room today. The wound now measures 12 x 10 cm in size and is approximate 4 mm deep. I would recommend continued wound care by wound care nurses and follow-up as an outpatient with the wound care clinic. If any deeper debridement or debridement more inferiorly overlying the Achilles tendon is required, I would recommend orthopedics consult. Admission and Anticipated Discharge Date Admission Date: October 21, 2020 Results & Data ([facility]) Vital Signs (Past 12 Hours) Vital Signs Temp Pulse Resp BP Pulse Ox 10/23/20 11:49 37.8 C H 103 H 20 151/89 H 97 10/23/20 07:25 36.8 C 100 H 18 140/67 93 PG Care Time/CCT Total # of Minutes Spent Total Time Spent with Patient: Total time spent is greater than 50% in coordination of care (as documented) at patient's floor/unit and/or counseling patient: Coding Level of Care Code None Diagnoses Pressure ulcer of right calf, stage 2 L89.892
--- NOTE | 2020-10-23 14:36 | Anesthesiology Progress Note ---
Date of Service October 23, 2020 Anesthesia Post Procedure Vital Signs Vital Signs: Temp Pulse Pulse Resp BP Pulse Ox 10/23/20 14:30 93 H 14 130/80 99 10/23/20 14:20 100 H 16 107/75 98 10/23/20 14:09 36.2 C L 81 16 130/94 100 10/23/20 11:49 37.8 C H 103 H 20 151/89 H 97 10/23/20 07:25 36.8 C 100 H 18 140/67 93 10/22/20 23:48 36.9 C 90 17 119/75 93 10/22/20 21:45 93 H 108/66 10/22/20 15:50 36.7 C 98 H 18 109/66 99 Transfer of Care Handoff Completed per policy Notes Mental Status: alert / awake / arousable and participated in evaluation Patient Amnestic to Procedure: Yes Nausea / Vomiting: adequately controlled Pain: adequately controlled Airway Patency, RR, SpO2: stable & adequate BP & HR: stable & adequate Hydration State: stable & adequate Anesthetic Complications: no major complications apparent and Pt Satisfied with anesthetic care
[2020-10-23] MEDS ORDERED: MoRPHine SULFATE 2 MG/ML CARP IV PRN (15:01)
--- NOTE | 2020-10-23 16:45 | Hospitalist Progress Note ---
Date of Service October 23, 2020 Assessment & Plan (1) Cellulitis of both lower extremities: (2) Skin ulcer of multiple sites: Pt was sent from wound care clinic to the ER for wound necrotic Pt failed outpatient treatment with IM Rocephin and oral Bactrim. S/P Right Lower Extremity Debridement of Calf Wound, sharp debridement, greater than [address] Ireland, DO Continue IV Zosyn and oral Bactrim for now Wound cx grew gram negative bacilli [facility] ID consulted - Pending Wound care on board Continue daily wound care (3) HTN (hypertension): Continue home med regimen BP stable at present. (4) Dyslipidemia: Continue statin therapy (5) Atrial fibrillation: Stable without persistent symptoms - on chronic anticoagulation. Continue to hold Eliquis, will resume in am (6) Hypothyroidism: Continue outpatient levothyroxine. Code status full code DVT prophylaxis on subQ heparin, but will hold in am for possible rehab Admission and Anticipated Discharge Date Admission Date: October 21, 2020 Subjective Pt was seen and examined for follow up of wound foot necrotic Lying in bed with no distress with daughter at bedside Denies any chest pain, palpitation, dizziness and SOB Review of Systems Review of Systems: All systems reviewed & are unremarkable except as noted in Subjective Physical Exam Physical Exam: General- No acute distress Head- atraumatic Eyes- PERRL, EOMI, ENT- oropharynx clear Neck- supple, no JVD Lungs- clear to auscultation Heart- irregular rhythm; no murmur Abdomen- normal bowel sounds, soft, nontender Extremities- +edema, dressing placed in legs, see pictures from wound consult Neuro- alert, oriented x 3; PERRL, EOMI; no facial palsy; no dysarthria Skin- warm & dry Results & Data Results & Data ([facility]) Vital Signs (Past 12 Hours) Vital Signs Temp Pulse Pulse Resp BP Pulse Ox 10/23/20 15:44 108 H 12 122/76 10/23/20 15:18 98 H 14 116/73 95 10/23/20 15:00 36.2 C L 90 16 125/67 96 10/23/20 14:47 79 14 123/77 99 10/23/20 14:40 36.2 C L 93 H 14 145/64 H 97 10/23/20 14:30 93 H 14 130/80 99 10/23/20 14:20 100 H 16 107/75 98 10/23/20 14:09 36.2 C L 81 16 130/94 100 10/23/20 11:49 37.8 C H 103 H 20 151/89 H 97 10/23/20 07:25 36.8 C 100 H 18 140/67 93 (1) Skin ulcer of multiple sites Non-pressure ulcer stage: unspecified non-pressure ulcer stage Qualified Cod e(s): L98.499 - Non-pressure chronic ulcer of skin of other sites with unspecified severity (2) Atrial fibrillation Atrial fibrillation type: longstanding persistent Qualified Code(s): I48.11 - Longstanding persistent atrial fibrillation (3) Hypothyroidism Hypothyroidism type: acquired Qualified Code(s): E03.9 - Hypothyroidism, unspecified (4) HTN (hypertension) Hypertension type: essential hypertension Qualified Code(s): I10 - Essential (primary) hypertension
[2020-10-23] MEDS: METOPROLOL TARTRATE 50 MG TAB PO SCH (20:08)
[2020-10-23] MEDS: LOSARTAN POTASSIUM 25 MG TAB PO SCH (20:09)
[2020-10-23] MEDS: ATORVASTATIN 10 MG TAB PO SCH (20:09)
[2020-10-23] MEDS: ACETAMINOPHEN 325 MG TAB PO PRN (22:46)
[2020-10-24] MEDS: PIPERACILLIN/TAZOBACTAM 3.375 GM in DEXTROSE 5% 100 ML IV SCH ×3 (05:57→21:32)
[2020-10-24] MEDS: LEVOTHYROXINE SODIUM 25 MCG TABLET PO SCH (05:57)
--- NOTE | 2020-10-24 07:54 | Surgery Progress Note ---
Date of Service October 24, 2020 Assessment & Plan (1) Pressure ulcer of right calf, stage 2: POD#1 debridement of R calf wound patient doing well, pain controlled surgical dressings intact, currently dressed with 4x4 gauze, ABD pad, kerlex wrap, and JAILENE bandage Will defer further wound care to the wound care team. If further surgical debridement is necessitated we would recommend an orthopedics consultation. patient to follow up in wound care clinic upon discharge Admission and Anticipated Discharge Date Admission Date: October 21, 2020 Supervising Physician Co-Signing Physician Notes Patient seen and examined, agree with above. POD #1 debridement of right calf wound. No overnight events, pain controlled. Patient was on bedside commode so unable to examine the wound, however there is no strikethrough. We will wound care to take over management of this wound. Of note, any deeper or more distal debridement would likely require an orthopedic consult. Surgery will sign off, call with questions or concerns Subjective Patient says she is doing well this AM. Has some itchiness over wound and states it hurt some when she tries to get up and walk, but otherwise offers no overt complaints. Physical Exam Physical Exam: awake/alert Skin: surgical dressings in place to R calf Results & Data ([facility]) Vital Signs (Past 12 Hours) Vital Signs Temp Pulse Resp BP Pulse Ox 10/24/20 07:35 36.4 C L 104 H 18 119/68 95 10/23/20 22:41 37.3 C 89 17 106/69 95 PG Care Time/CCT Total # of Minutes Spent Total Time Spent with Patient: Total time spent is greater than 50% in coordination of care (as documented) at patient's floor/unit and/or counseling patient: Coding Level of Care Code None Diagnoses Pressure ulcer of right calf, stage 2 L89.892
[2020-10-24] MEDS: METOPROLOL TARTRATE 100 MG TAB PO SCH (09:25)
[2020-10-24] MEDS: LOSARTAN POTASSIUM 50 MG TAB PO SCH (09:25)
[2020-10-24] MEDS: CHOLECALCIFEROL 1,000 UNITS 25 MCG TAB PO SCH (09:25)
[2020-10-24] MEDS: POTASSIUM CHLORIDE CRTAB 20 MEQ TABCR PO SCH (09:25)
[2020-10-24] MEDS: SULFAMETHOXAZOLE/TRIMETHOPRIM DS 800/160MG TAB PO SCH ×2 (09:25→20:08)
[2020-10-24] MEDS: COLLAGENASE OINT 30 GM TUBE EXT SCH (09:26)
[2020-10-24] MEDS: LOSARTAN POTASSIUM 25 MG TAB PO SCH (20:08)
[2020-10-24] MEDS: ATORVASTATIN 10 MG TAB PO SCH (20:08)
[2020-10-24] MEDS: METOPROLOL TARTRATE 50 MG TAB PO SCH (21:03)
--- NOTE | 2020-10-24 21:43 | Hospitalist Progress Note ---
Date of Service October 24, 2020 Assessment & Plan (1) Cellulitis of both lower extremities: (2) Skin ulcer of multiple sites: Pt was sent from wound care clinic to the ER for wound necrotic Pt failed outpatient treatment with IM Rocephin and oral Bactrim. S/P day 1 Right Lower Extremity Debridement of Calf Wound, sharp debridement, greater than 50 cm2 performed by general surgery Dr. Ireland, DO Continue IV Zosyn and oral Bactrim for now Wound cx grew gram negative bacilli - proteus mirabilis [facility] ID consulted recommended to transion to unasyn 3g IV q6h Will d/c IV zosyn and Bactrim Will transition to PO Amoxicillin on discharge If pt need more extensive/deeper debriedement, surgery recommended ortho consult for eval Continue daily wound care (3) HTN (hypertension): Continue home med regimen BP stable at present. (4) Dyslipidemia: Continue statin therapy (5) Atrial fibrillation: Stable without persistent symptoms - on chronic anticoagulation. Continue to hold Eliquis, will resume in am (6) Hypothyroidism: Continue outpatient levothyroxine. Code status full code DVT prophylaxis heparin on hold for now Admission and Anticipated Discharge Date Admission Date: October 21, 2020 Subjective Pt was seen and examined for follow of right calf foot debridement Lying in bed with no acute distress Pt said that she feels fine Denies any chest pain, palpitation,dizziness and SOB Review of Systems Review of Systems: All systems reviewed & are unremarkable except as noted in Subjective Physical Exam Physical Exam: General- No acute distress Head- atraumatic Eyes- PERRL, EOMI, ENT- oropharynx clear Neck- supple, no JVD Lungs- clear to auscultation Heart- irregular rhythm; no murmur Abdomen- normal bowel sounds, soft, nontender Extremities- +edema, dressing placed in legs, see pictures from wound consult Neuro- alert, oriented x 3; PERRL, EOMI; no facial palsy; no dysarthria Skin- warm & dry Results & Data Results & Data ([facility]) Vital Signs (Past 12 Hours) Vital Signs Temp Pulse Resp BP BP Pulse Ox 10/24/20 20:06 99 H 99/65 L 95 10/24/20 16:48 90/58 L 10/24/20 16:47 36.7 C 93 H 16 89/47 L 92 10/24/20 11:32 36.7 C 107 H 18 98/67 L 95 10/24/20 11:30 91/66 L (1) Skin ulcer of multiple sites Non-pressure ulcer stage: unspecified non-pressure ulcer stage Qualified Code(s): L98.499 - Non-pressure chronic ulcer of skin of other sites with unspecified severity (2) Atrial fibrillation Atrial fibrillation type: longstanding persistent Qualified Code(s): I48.11 - Longstanding persistent atrial fibrillation (3) Hypothyroidism Hypothyroidism type: acquired Qualified Code(s): E03.9 - Hypothyroidism, unspecified (4) HTN (hypertension) Hypertension type: essential hypertension Qualified Code(s): I10 - Essential (primary) hypertension
[2020-10-25] MEDS: AMPICILLIN/SULBACTAM SOD 3,000 MG in 0.9 % SODIUM CHLORIDE 100 ML IV SCH ×4 (00:50→19:56)
[2020-10-25] MEDS: LEVOTHYROXINE SODIUM 25 MCG TABLET PO SCH (06:23)
[2020-10-25] MEDS: LOSARTAN POTASSIUM 50 MG TAB PO SCH (09:53)
[2020-10-25] MEDS: METOPROLOL TARTRATE 100 MG TAB PO SCH (09:53)
[2020-10-25] MEDS: CHOLECALCIFEROL 1,000 UNITS 25 MCG TAB PO SCH (09:53)
[2020-10-25] MEDS: COLLAGENASE OINT 30 GM TUBE EXT SCH (09:54)
[2020-10-25] MEDS: POTASSIUM CHLORIDE CRTAB 20 MEQ TABCR PO SCH (10:03)
--- NOTE | 2020-10-25 16:59 | Hospitalist Progress Note ---
Date of Service October 25, 2020 Assessment & Plan (1) Cellulitis of both lower extremities: (2) Skin ulcer of multiple sites: Pt was sent from wound care clinic to the ER for wound necrotic Pt failed outpatient treatment with IM Rocephin and oral Bactrim. S/P day 1 Right Lower Extremity Debridement of Calf Wound, sharp debridement, greater than 50 cm2 performed by general surgery Dr. Ireland, DO Continue IV Zosyn and oral Bactrim for now Wound cx grew gram negative bacilli - proteus mirabilis [facility] ID consulted recommended to transition to Unasyn 3g IV q6h IV zosyn and Bactrim discontinued, then transition to Unasyn on 10/25/20 Will transition to PO Amoxicillin on discharge If pt need more extensive/deeper debriedement, surgery recommended ortho consult for eval Continue daily wound care PT/OT eval (3) HTN (hypertension): Continue home med regimen BP stable at present. (4) Dyslipidemia: Continue statin therapy (5) Atrial fibrillation: Stable without persistent symptoms - on chronic anticoagulation. Eliquis resumed today (6) Hypothyroidism: Continue outpatient levothyroxine. Code status full code DVT prophylaxis heparin on hold for now Admission and Anticipated Discharge Date Admission Date: October 21, 2020 Subjective Pt was seen and examined for follow of right calf foot debridement Lying in bed with no acute distress Pt said that she feels fine She said that she wants to go to [facility] that she can start therapy Denies any chest pain, palpitation,dizziness and SOB Review of Systems Review of Systems: All systems reviewed & are unremarkable except as noted in Subjective Physical Exam Physical Exam: General- No acute distress Head- atraumatic Eyes- PERRL, EOMI, ENT- oropharynx clear Neck- supple, no JVD Lungs- clear to auscultation Heart- irregular rhythm; no murmur Abdomen- normal bowel sounds, soft, nontender Extremities- +edema, dressing placed in legs, see pictures from wound consult Neuro- alert, oriented x 3; PERRL, EOMI; no facial palsy; no dysarthria Skin- warm & dry Results & Data Results & Data ([facility]) Vital Signs (Past 12 Hours) Vital Signs Temp Pulse Resp BP Pulse Ox 10/25/20 07:33 36.3 C L 86 16 126/73 97 (1) Skin ulcer of multiple sites Non-pressure ulcer stage: unspecified non-pressure ulcer stage Qualified Code(s): L98.499 - Non-pressure chronic ulcer of skin of other sites with unspecified severity (2) Atrial fibrillation Atrial fibrillation type: longstanding persistent Qualified Code(s): I48.11 - Longstanding persistent atrial fibrillation (3) Hypothyroidism Hypothyroidism type: acquired Qualified Code(s): E03.9 - Hypothyroidism, unspecified (4) HTN (hypertension) Hypertension type: essential hypertension Qualified Code(s): I10 - Essential (primary) hypertension
[2020-10-25] MEDS: LOSARTAN POTASSIUM 25 MG TAB PO SCH (20:22)
[2020-10-25] MEDS: METOPROLOL TARTRATE 50 MG TAB PO SCH (20:23)
[2020-10-25] MEDS: ATORVASTATIN 10 MG TAB PO SCH (20:23)
[2020-10-25] MEDS: APIXABAN 5 MG TABLET PO SCH (20:26)
[2020-10-26] MEDS: ADVANCED PROBIOTIC 1250 MG CAPSULE PO SCH ×2 (00:02→08:42)
[2020-10-26] MEDS: AMPICILLIN/SULBACTAM SOD 3,000 MG in 0.9 % SODIUM CHLORIDE 100 ML IV SCH ×4 (00:27→18:18)
[2020-10-26 06:12] LABS: Hematocrit (blood only) 39.3 % (37-47); Hemoglobin 12.7 g/dL (12.0-16.0); Mean Corpuscular Hemoglobin 29.3 pg (25-34); Mean Corpuscular Hgb Conc 32.3 g/dL (32-36); Mean Corpuscular Volume 90.6 fL (80-100); Mean Platelet Volume 9.4 fL (7.4-10.4); Platelet Count 310 K/uL (130-400); Red Blood Count 4.34 M/uL (4.2-5.4); White Blood Count 7.43 K/uL (4.8-10.8)
[2020-10-26] MEDS: LEVOTHYROXINE SODIUM 25 MCG TABLET PO SCH (06:13)
[2020-10-26] MEDS: LOSARTAN POTASSIUM 50 MG TAB PO SCH (08:42)
[2020-10-26] MEDS: POTASSIUM CHLORIDE CRTAB 20 MEQ TABCR PO SCH (08:42)
[2020-10-26] MEDS: APIXABAN 5 MG TABLET PO SCH ×2 (08:43→21:09)
[2020-10-26] MEDS: CHOLECALCIFEROL 1,000 UNITS 25 MCG TAB PO SCH (08:43)
[2020-10-26] MEDS: METOPROLOL TARTRATE 100 MG TAB PO SCH (08:43)
[2020-10-26] MEDS: COLLAGENASE OINT 30 GM TUBE EXT SCH (08:44)
--- NOTE | 2020-10-26 16:26 | Hospitalist Progress Note ---
Date of Service October 26, 2020 Assessment & Plan (1) Cellulitis of both lower extremities: (2) Skin ulcer of multiple sites: Pt was sent from wound care clinic to the ER for wound necrotic Pt failed outpatient treatment with IM Rocephin and oral Bactrim. S/P day 1 Right Lower Extremity Debridement of Calf Wound, sharp debridement, greater than 50 cm2 performed by general surgery Dr. Ireland, DO Continue IV Zosyn and oral Bactrim for now Wound cx grew gram negative bacilli - proteus mirabilis [facility] ID consulted recommended to transition to Unasyn 3g IV q6h IV zosyn and Bactrim discontinued, then transition to Unasyn on 10/25/20 Will transition to PO Amoxicillin on discharge If pt need more extensive/deeper debriedement, surgery recommended ortho consult for eval Continue daily wound care PT/OT eval Plan to go to [facility] tomorrow (3) HTN (hypertension): Continue home med regimen BP stable at present. (4) Dyslipidemia: Continue statin therapy (5) Atrial fibrillation: rate control with metoprolol Continue [facility] (6) Hypothyroidism: Continue outpatient levothyroxine. Code status full code DVT prophylaxis on [facility] Admission and Anticipated Discharge Date Admission Date: October 21, 2020 Subjective Pt was seen and examined for follow of right calf foot debridement Lying in bed with no acute distress Pt said that she feels fine Denies any chest pain, palpitation,dizziness and SOB Review of Systems Review of Systems: All systems reviewed & are unremarkable except as noted in Subjective Physical Exam Physical Exam: General- No acute distress Head- atraumatic Eyes- PERRL, EOMI, ENT- oropharynx clear Neck- supple, no JVD Lungs- clear to auscultation Heart- irregular rhythm; no murmur Abdomen- normal bowel sounds, soft, nontender Extremities- +edema, dressing placed in legs, see pictures from wound consult Neuro- alert, oriented x 3; PERRL, EOMI; no facial palsy; no dysarthria Skin- warm & dry Results & Data Results & Data ([facility]) Vital Signs (Past 12 Hours) Vital Signs Temp Pulse Resp BP Pulse Ox 10/26/20 07:47 36.4 C L 105 H 18 137/83 93 (1) Skin ulcer of multiple sites Non-pressure ulcer stage: unspecified non-pressure ulcer stage Qualified Code(s): L98.499 - Non-pressure chronic ulcer of skin of other sites with unspecified severity (2) Atrial fibrillation Atrial fibrillation type: longstanding persistent Qualified Code(s): I48.11 - Longstanding persistent atrial fibrillation (3) Hypothyroidism Hypothyroidism type: acquired Qualified Code(s): E03.9 - Hypothyroidism, unspecified (4) HTN (hypertension) Hypertension type: essential hypertension Qualified Code(s): I10 - Essential (primary) hypertension
[2020-10-26] MEDS: oxyCODONE HCL IR 5 MG TAB (IMMEDIATE RELEASE) PO PRN (21:08)
[2020-10-26] MEDS: LOSARTAN POTASSIUM 25 MG TAB PO SCH (21:09)
[2020-10-26] MEDS: ATORVASTATIN 10 MG TAB PO SCH (21:09)
[2020-10-26] MEDS: METOPROLOL TARTRATE 50 MG TAB PO SCH (21:09)
[2020-10-26] MEDS: ACETAMINOPHEN 325 MG TAB PO PRN (23:14)
[2020-10-27] MEDS: AMPICILLIN/SULBACTAM SOD 3,000 MG in 0.9 % SODIUM CHLORIDE 100 ML IV SCH ×2 (01:47→06:19)
[2020-10-27] MEDS: LEVOTHYROXINE SODIUM 25 MCG TABLET PO SCH (06:20)
[2020-10-27] MEDS: LOSARTAN POTASSIUM 50 MG TAB PO SCH (07:54)
[2020-10-27] MEDS: METOPROLOL TARTRATE 100 MG TAB PO SCH (07:54)
[2020-10-27] MEDS: ADVANCED PROBIOTIC 1250 MG CAPSULE PO SCH (07:54)
[2020-10-27] MEDS: APIXABAN 5 MG TABLET PO SCH (07:55)
[2020-10-27] MEDS: CHOLECALCIFEROL 1,000 UNITS 25 MCG TAB PO SCH (07:55)
[2020-10-27] MEDS: COLLAGENASE OINT 30 GM TUBE EXT SCH (07:55)
[2020-10-27] MEDS: oxyCODONE HCL IR 5 MG TAB (IMMEDIATE RELEASE) PO PRN (09:59)
[2020-10-27] MEDS: POTASSIUM CHLORIDE CRTAB 20 MEQ TABCR PO SCH (10:14)
--- NOTE | 2020-10-27 12:12 | Hospitalist Progress Note ---
Date of Service October 27, 2020 Assessment & Plan (1) Cellulitis of both lower extremities: (2) Skin ulcer of multiple sites: Pt was sent from wound care clinic to the ER for wound necrotic Pt failed outpatient treatment with IM Rocephin and oral Bactrim. S/P day 1 Right Lower Extremity Debridement of Calf Wound, sharp debridement, greater than 50 cm2 performed by general surgery Dr. Ireland, DO Continue IV Zosyn and oral Bactrim for now Wound cx grew gram negative bacilli - proteus mirabilis [facility] consulted recommended to transition to Unasyn 3g IV q6h IV zosyn and Bactrim discontinued, then transition to Unasyn on 10/25/20 Will transition to PO Amoxicillin on discharge If pt need more extensive/deeper debridement, surgery recommended ortho consult for eval Spoke to wound care nurse today and reviewed photo of the wound No further debridement as per wound care for now Continue daily wound care Continue pain control PRN Continue PT/OT Plan to go to [facility] today (3) HTN (hypertension): Continue home med regimen BP stable at present. (4) Dyslipidemia: Continue statin therapy (5) Atrial fibrillation: Rate control with metoprolol Continue Eliquis (6) Hypothyroidism: Continue outpatient levothyroxine. Code status full code DVT prophylaxis on Eliquis Disposition Discharge today to [facility] Admission and Anticipated Discharge Date Admission Date: October 21, 2020 Subjective Pt was seen and examined for follow of right calf foot debridement Lying in bed with no acute distress Pt said that she feels fine She had her dressing done today Denies any chest pain, palpitation,dizziness and SOB Review of Systems Review of Systems: All systems reviewed & are unremarkable except as noted in Subjective Physical Exam Physical Exam: General- No acute distress Head- atraumatic Eyes- PERRL, EOMI, ENT- oropharynx clear Neck- supple, no JVD Lungs- clear to auscultation Heart- irregular rhythm; no murmur Abdomen- normal bowel sounds, soft, nontender Extremities- +edema, dressing placed in legs, see pictures from wound consult Neuro- alert, oriented x 3; PERRL, EOMI; no facial palsy; no dysarthria Skin- warm & dry Results & Data Results & Data ([facility]) Vital Signs (Past 12 Hours) Vital Signs Temp Pulse Pulse Resp BP BP Pulse Ox 05/24/21 11:52 36.6 C 76 76 18 129/85 118/75 95 (1) Skin ulcer of multiple sites Non-pressure ulcer stage: unspecified non-pressure ulcer stage Qualified Code(s): L98.499 - Non-pressure chronic ulcer of skin of other sites with unspecified severity (2) HTN (hypertension) Hypertension type: essential hypertension Qualified Code(s): I10 - Essential (primary) hypertension (3) Atrial fibrillation Atrial fibrillation type: longstanding persistent Qualified Code(s): I48.11 - Longstanding persistent atrial fibrillation (4) Hypothyroidism Hypothyroidism type: acquired Qualified Code(s): E03.9 - Hypothyroidism, unspecified
[2020-10-27] MEDS ORDERED: TORSEMIDE 10 MG TAB PO STA (12:30)
--- NOTE | 2020-11-04 08:31 | Coding Query ---
ULCER DOCUMENTATION To promote full compliance with coding requirements relating to patient care, physician participation is requested in all cases of title abstractor uncertainty. Please assist us with the question(s) below: Please specify the known or suspected type by placing an "X" within the parenthesis (x). An ulcer of the RIGHT CALF was treated. This was documented as due to venous stasis by the attending and as a pressure ulcer by surgery and wound care. Please specify below the confirmed type of ulcer and the stage/severity of the ulcer. Right calf PRESSURE ULCER ( ) Stage I ( x) Stage II ( ) Stage III ( ) Stage IV ( ) Unstageable ( ) Unable to determine Right calf VENOUS STASIS ULCER ( ) limited to skin breakdown ( ) fat layer exposed ( ) necrosis of muscle ( ) necrosis of bone ( ) muscle involvement w/o evidence of necrosis ( ) bone involvement w/o evidence of necrosis ( ) other specified severity ( ) unspecified severity Thank you Josefa WINTER
--- NOTE | 2020-11-05 08:05 | Discharge Summary ---
Date of Service October 27, 2020 Admission HPI Per Admitting Provider This is a 80 y/o female with a PMH of atrial fibrillation on chronic anticoagulation with Eliquis, HTN, lymphedema, dyslipidemia, and mitral valve regurgitation presents as a direct admission from wound care today with a necrotic calf wound and associated cellulitis that failed outpatient management with IM ceftriaxone and oral Bactrim. Pt reports ongoing issues with lower extremity edema for which she has been seen outpatient, diuretics were adjusted, and patient was referred to the lymphedema clinic. Pt reports ulcers started about 3 weeks ago but have gradually worsened. Initially the drainage was clear but has become yellow and more profuse over the past several days. May be bloody at times. Last week, pts daughter arrived from out of town and noted a large wound on pts right calf with associated redness, which she was very concerned about. Pt was seen in PCP office and started on antibiotics and labs and a wound culture were collected. She received Ceftriaxone 1 g IM on 10/16, 10/17, and 10/18. She was started on oral Bactrim DS 1 tab BID on 10/17. Topical silvadene was also started on 10/16. Wound culture from 10/17/20 grew many citrobacter (susceptible to cefepime, Cipro, gentamicin, pip/tazo, and Bactrim), many stenotrophomonas maltophilia (no susceptibility testing but recommends Bactrim), and few staph aureus (susceptible to clindamycin, oxacillin, tetracycline, Bactrim and Vanco but resistant to PCN-G and intermediate to erythromycin). Today she presented for urgent evaluation at wound care clinic and was noted to have multiple wounds, including the one on her right calf that is now necrotic, with an associated cellulitis. She was referred by the wound care physician to be directly admitted for surgical debridement and IV antibiotic therapy. Pt's main complaint is LE weakness, pain/soreness at the ulcer sites, and limited ability to ambulate due to this complaint. She denies fevers, chills, malaise, fatigue, CP, palpitation, SOB, N/V/D. She does note urinary incontinence that she relates to the higher dose of Demadex. Admission Exam Per Admitting Provider Constitutional: well developed and well nourished; no acute distress Eyes: + anicteric sclerae; no conjunctival abnormality Neck: trachea midline Respiratory: no respiratory distress and no labored breathing Auscultation: lungs clear to auscultation bilaterally; no rales, no rhonchi and no wheezes Cardiovascular: + irregularly irregular Vessels: radial pulses present; no carotid bruit Extremities: + edema (bilateral LE 1+ pitting to lower thighs - however, legs currently wrapped) Gastrointestinal: normal bowel sounds; abdomen not distended Percussion/Palpation: abdomen soft; abdomen nontender Musculoskeletal: normocephalic, head atraumatic and neck supple Skin: Bilateral LEs are wrapped with dressings C/D/I - not removed since pt was evaluated by wound care this AM (please see their note) and debridement a ttempted Neurologic: moves all extremities; no focal motor deficits Motor/Sensory: normal movement Psychiatric: A+Ox3, euthymic affect Principal Diagnosis (1) Cellulitis of both lower extremities: (2) Skin ulcer of multiple sites: (3) HTN (hypertension): (4) Dyslipidemia: (5) Atrial fibrillation: (6) Hypothyroidism: Discharge Exam General- No acute distress Head- atraumatic Eyes- PERRL, EOMI, ENT- oropharynx clear Neck- supple, no JVD Lungs- clear to auscultation Heart- irregular rhythm; no murmur Abdomen- normal bowel sounds, soft, nontender Extremities- +edema, dressing placed in legs, see pictures from wound consult Neuro- alert, oriented x 3; PERRL, EOMI; no facial palsy; no dysarthria Skin- warm & dry Discharge Data Allergies Allergy/AdvReac Type Severity Reaction Status Date / Time No Known Allergies Allergy Verified 10/21/20 09:05 Consultations 10/21/20 14:23 Consult Infectious Diseases Routine 10/22/20 12:38 Consult General Surgery Routine Procedures Performed Operation Date: 10/23/20 11:30 Actual Procedures p Right Lower Extremity Debridement of Calf Wound(Right) - Pepito Ireland DO, FACS Hospital Course (1) Cellulitis of both lower extremities: (2) Skin ulcer of multiple sites: Pt was sent from wound care clinic to the ER for wound necrotic Pt failed outpatient treatment with IM Rocephin and oral Bactrim. S/P day 1 Right Lower Extremity Debridement of Calf Wound, sharp debridement, greater than 50 cm2 performed by general surgery Dr. Beka DO Continue IV Zosyn and oral Bactrim for now Wound cx grew gram negative bacilli - proteus mirabilis Chad ID consulted recommended to transition to Unasyn 3g IV q6h IV zosyn and Bactrim discontinued, then transition to Unasyn on 10/25/20 Will transition to PO Amoxicillin on discharge If pt need more extensive/deeper debridement, surgery recommended ortho consult for eval Spoke to wound care nurse today and reviewed photo of the wound No further debridement as per wound care for now Continue daily wound care Continue pain control PRN Continue PT/OT Plan to go to [facility] today (3) HTN (hypertension): Continue home med regimen BP stable at present. (4) Dyslipidemia: Continue statin therapy (5) Atrial fibrillation: Rate control with metoprolol Continue Eliquis (6) Hypothyroidism: Continue outpatient levothyroxine. Code status full code DVT prophylaxis on Eliquis Disposition Discharge today to [facility] Total Time Total Time Spent Total Time Spent (In Minutes): 35 minutes Total Time Includes: Examination of the Patient, Discharge Planning, Medication Reconciliation, Communication With Other Providers and Other Discharge Plan Discharge Items Patient Disposition: Transfer [facility] Reason For Visit: NECROTIC WOUND, CELLULITIS Discharge Diagnosis: (1) Cellulitis of both lower extremities: (2) Skin ulcer of multiple sites: (3) HTN (hypertension): (4) Dyslipidemia: (5) Atrial fibrillation: (6) Hypothyroidism: Activity: Resume your previous activity Non-emergency contact: Primary Care Provider Call non-emergency contact if: you have any medication questions Follow-up/Referrals: Yi Orosco PA-C [Primary Care Provider] - Diet: Heart Healthy Addtl Attending Provider Instructions: Follow up with your primary care provider once discharge from [facility] Follow up with wound care clinic closely Continue physical and occupational therapy Continue daily wound care Fall precaution Complete the course of the antibiotic with Augmentin Please hold next dose of the narcotic if you become drowsy and lethargy Please do not drive or operate any machine while on narcotic Pending Studies at Discharge: No Stand-Alone Forms: My [facility] Skilled Items Patient informed of condition?: Yes DNR: No Discharge Level of Care: Skilled Communicable Disease: No Discharge Prognosis: Stable Lines: None Urinary Catheter: No Medications and DC Order Prescriptions: New oxycodone 5 mg Tablet 5 mg PO Q8H PRN (Reason: moderate to severe pain) Qty: 10 RF: 0 amoxicillin-pot clavulanate [Augmentin] 875-125 mg tablet 1 tab PO BID 14 Days Qty: 28 RF: 0 Advanced Probiotic 625 mg (10 billion cell) Capsule 2 cap PO DAILY Qty: 30 RF: 0 Continued silver sulfadiazine [Silvadene] 1 % cream 1 applic topical DAILY RF: 0 torsemide 20 mg tablet 20 mg PO BID RF: 0 potassium chloride 20 mEq tablet,ER particles/crystals 20 meq PO DAILY RF: 0 Eliquis 5 mg tablet 5 mg PO BID RF: 0 losartan [Cozaar] 25 mg tablet 50 mg PO QAM RF: 0 losartan [Cozaar] 25 mg tablet 25 mg PO QPM RF: 0 metoprolol tartrate [Lopressor] 50 mg tablet 50 mg PO PM RF: 0 diclofenac sodium [Voltaren] 1 % gel 2 g topical QID RF: 0 levothyroxine 25 mcg capsule 12.5 mcg PO DAILY RF: 0 atorvastatin 10 mg tablet 10 mg PO PM RF: 0 cholecalciferol (vitamin D3) 25 mcg (1,000 unit) capsule 25 mcg PO DAILY RF: 0 vitamins A,C,L-mned-eekump 7,160 unit- 113 mg-100 unit tablet 1 tab PO ONCE RF: 0 Caltrate 600 plus D 600 mg (1,500 mg)-800 unit tablet,chewable 1 tab PO BID RF: 0 metoprolol tartrate 50 mg tablet 100 mg PO QAM RF: 0 Discontinued sulfamethoxazole-trimethoprim [Bactrim DS] 800-160 mg tablet 1 tab PO BID RF: 0 Discharge Orders: Discharge Order (Routine); Ordered 10/27/20 Ordered By: Maikel Aguayo Admission Data Admit Date/Time: 10/21/20 12:48 Attending Provider: Maikel Aguayo Admit Provider: Danica Hurst Primary Care Provider: Yi Orosco Other Providers: Pepito Ireland ; Nikos Mcguire I. Other Interventions: Discharge Summary Assessment (RN) Last Done: 10/27/20 11:52
== END 2020-10-27 13:25 | DRG 571 ==
LOC: 3W 12:48 → SUATTDRO 12:48 → 3W 10-23 15:04